=== PATIENT | male | born 1965 ===

== ENCOUNTER 2016-12-23 22:33 | Emergency (ER) | payer SELFPAY ==
[2016-12-23 22:35] VITALS: BMI 25.1
[2016-12-23] MEDS ORDERED: Sodium Chloride 0.9% 1,000 ML IV STA (22:36)
[2016-12-23 23:09] LABS: BASO # 0.1 K/uL (0.0-0.2); BASO % 1.2 % (0.0-2.0); EOS # 0.2 K/uL (0.0-0.7); HEMOGLOBIN 15.2 g/dL (12.0-18.0); LYMPH # 2.2 K/uL (1.0-4.3); MEAN CELL VOLUME 102.9 fL (80.0-94.0); MEAN CORPUSCULAR HGB CONC 33.1 g/dL (33.0-37.0); MEAN PLATELET VOLUME 7.3 fL (7.2-11.7); MONO # 0.7 K/uL (0.0-0.8); MONO % 12.2 % (0.0-10.0); NEUT # 2.4 K/uL (1.8-7.0); NEUT % 42.6 % (50.0-75.0); RBC 4.47 Mil/uL (4.40-5.90); RED CELL DISTRIBUTION WIDTH 13.5 % (11.5-14.5); WHITE BLOOD COUNT 5.5 K/uL (4.8-10.8)
[2016-12-23 23:15] LABS: URINE BILIRUBIN NEGATIVE (NEGATIVE); URINE BLOOD NEGATIVE (NEGATIVE); URINE CLARITY Clear (Clear); URINE COLOR Straw (YELLOW); URINE GLUCOSE (UA) NORMAL (Normal); URINE LEUKOCYTE ESTERASE NEG Leu/uL (Negative); URINE NITRATE NEGATIVE (NEGATIVE); URINE PROTEIN NEGATIVE (NEGATIVE); URINE UROBILINOGEN NORMAL mg/dL (0.2-1.0)
[2016-12-23 23:23] LABS: ALBUMIN 4.3 g/dL (3.5-5.0)
[2016-12-23 23:24] LABS: BARBITURATES, UR NEGATIVE (NEGATIVE); BENZODIAZEPINES, UR NEGATIVE (NEGATIVE)
[2016-12-23 23:26] LABS: AST/SGOT 95 U/L (17-59); GFR AFRICAN-AMERICAN > 60; GFR NON-AFRICAN AMERICAN > 60
[2016-12-23 23:27] LABS: ALB/GLOB RATIO 1.2 (1.0-2.1); ALT/SGPT 50 U/L (21-72); BLOOD UREA NITROGEN 7 mg/dL (9-20); CALCIUM 8.2 mg/dl (8.6-10.4)
[2016-12-23 23:28] LABS: SALICYLATE < 1.0 mg/dL 1
[2016-12-23 23:28] LABS: PHENCYCLIDINE, UR NEGATIVE (NEGATIVE)
[2016-12-23 23:30] LABS: ACETAMINOPHEN < 10.0 ug/mL (10.0-30.0)
[2016-12-23 23:30] LABS: OPIATES, UR POSITIVE (NEGATIVE)
--- NOTE | 2016-12-23 23:46 | C.PDOC ---
History Of Present Illness 51 year old male brought to ER via EMS for a narcotic overdose after his roommate found him apneic and cyanotic and pinpoint pupils in the pt's apartment bathroom and called 911. Patient was given 2 mg INH of narcan in the field with sudden improvement and BIBA. admits alcohol use, denies narcotics use. No physical complaints verbalized at this time. Time Seen by Provider: 12/23/16 22:35 Chief Complaint (Nursing): Substance Abuse History Per: EMS History/Exam Limitations: no limitations Onset/Duration Of Symptoms: Hrs Current Symptoms Are (Timing): Still Present Suicide/Self Injury Attempted (Context): None Modifying Factor(s): Narcotics Associated Symptoms: denies: Depression, Suicidal Thoughts, Suicidal Plan Involuntary Hold By: None Recent travel outside of the [place]: No Past Medical History Reviewed: Historical Data, Nursing Documentation, Vital Signs Vital Signs: Last Vital Signs Temp 97.6 F 12/23/16 22:37 Pulse 88 12/23/16 23:36 Resp 15 12/23/16 23:36 BP 144/99 H 12/23/16 23:36 Pulse Ox 100 12/24/16 00:00 - Medical History PMH: No Chronic Diseases Surgical History: No Surg Hx Family History: States: Unknown Family Hx - Social History Hx Alcohol Use: Yes Hx Substance Use: No (pt denies) Review Of Systems Constitutional: Negative for: Fever, Chills Gastrointestinal: Negative for: Nausea, Vomiting, Diarrhea Physical Exam - Physical Exam Appears: Non-toxic, Other (ETOH on breath) Skin: Normal Color, Warm, Dry Head: Atraumatic, Normacephalic Eye(s): bilateral: EOMI, Other (Pin [place] Pupils) Oral Mucosa: Moist Chest: Symmetrical, No Tenderness Cardiovascular: Rhythm Regular, No Murmur Respiratory: Normal Breath Sounds, No Rales, No Rhonchi, No Wheezing Gastrointestinal/Abdominal: Soft, No Tenderness Extremity: Normal ROM, No Tenderness, No Other (Track Marshall) Neurological/Psych: Oriented x3, Normal Speech, Normal Cognition ED Course And Treatment - Laboratory Results Result Diagrams: 12/23/16 23:05 12/23/16 23:05 Lab Interpretation: Abnormal (ETOH 366H, tox + opiates) O2 Sat by Pulse Oximetry: 100 (Room air) Pulse Ox Interpretation: Normal Progress Note: IV fluids administered. Reevaluation Time: 00:13 Reassessment Condition: Improved (sleeping, easily arousable) Medical Decision Making Medical Decision Making: opiate and alcohol abuse, saved by narcan INH by 911 response. Disposition Doctor Will See Patient In The: Office Counseled Patient/Family Regarding: Studies Performed - Disposition Disposition Time: 01:00 Condition: GOOD - Clinical Impression Clinical Impression: Alcohol abuse, Narcotic abuse - Scribe Statement The provider has reviewed the documentation as recorded by the Scribe Chato De León All medical record entries made by the Sintiaibe were at my direction and personally dictated by me. I have reviewed the chart and agree that the record accurately reflects my personal performance of the history, physical exam, medical decision making, and the department course for this patient. I have also personally directed, reviewed, and agree with the discharge instructions and disposition. Physician Patient Turnover Patient Signed Over To: Camilo Carrera Handoff Comments: dispo in AM when sober
[2016-12-24 06:00] VITALS: BP 122/75; PULSE 72; RESP 18; TEMP 97.9; O2SAT 97
== END 2016-12-24 06:00 | disposition home or self-care (01) ==
LOC: C.ER 22:33
DX: T40.2X1A Poisoning by other opioids, accidental (unintentional), initial encounter (principal); F11.10 Opioid abuse, uncomplicated; Y92.009 Unspecified place in unspecified non-institutional (private) residence as the place of occurrence of the external cause; F10.120 Alcohol abuse with intoxication, uncomplicated; Y90.8 Blood alcohol level of 240 mg/100 ml or more
CPT/HCPCS: 80053; 81001; 85025; 96360; 99285; G0480; J7040

== ENCOUNTER 2017-04-02 11:37 | Emergency (ER) | payer SELFPAY ==
[2017-04-02 11:37] VITALS: BMI 25.1
[2017-04-02] MEDS ORDERED: Naloxone 0.4 mg/ml Inj (Adult) ONE ×3 (11:47→14:40)
[2017-04-02] MEDS ORDERED: Naloxone 0.4 mg/ml Inj (Adult) IVP STA ×2 (11:52→12:08)
--- NOTE | 2017-04-02 11:56 | C.PDOC ---
History Of Present Illness 51 y/o male brought to ED by EMS for evaluation of possible substance abuse. Patient was found on the street sleeping and was given 0.8mg of Narcan while on route with response. He arrived in ED with pinpoint pupils and was lethargic. He responded to 0.4mg narcan given by MD and woke up and denied somatic complaints or drug use. Time Seen by Provider: 04/02/17 11:39 Chief Complaint (Nursing): Substance Abuse History Per: EMS History/Exam Limitations: clinical condition Onset/Duration Of Symptoms: Hrs Current Symptoms Are (Timing): Still Present Suicide/Self Injury Attempted (Context): None Past Medical History Reviewed: Historical Data, Nursing Documentation, Vital Signs Vital Signs: Last Vital Signs Temp 97.7 F 04/02/17 13:55 Pulse 109 H 04/02/17 15:11 Resp 22 04/02/17 15:11 BP 117/75 04/02/17 15:11 Pulse Ox 95 04/02/17 15:11 - Medical History PMH: No Chronic Diseases Surgical History: No Surg Hx Family History: States: No Known Family Hx - Social History Hx Alcohol Use: Yes Hx Substance Use: No (pt denies) Review Of Systems Review Of Systems: ROS cannot be obtained secondary to pt's inabilty to answer questions. (Patient is in AMS) Physical Exam - Physical Exam Appears: Non-toxic Skin: Warm, Dry, No Rash Head: Atraumatic, Normacephalic Eye(s): bilateral: Other (pint point pupils) Oral Mucosa: Moist Neck: Supple Chest: Symmetrical Cardiovascular: Rhythm Regular Respiratory: Normal Breath Sounds, No Accessory Muscle Use, No Rales, No Rhonchi , No Wheezing Gastrointestinal/Abdominal: Soft, No Tenderness, No Guarding, No Rebound Extremity: Other (moving extremities spontaneously) Pulses: Left Radial: Normal, Right Radial: Normal Neurological/Psych: Other (Arousible to sternal rub, Lethargic) ED Course And Treatment - Laboratory Results Result Diagrams: 04/02/17 12:19 04/02/17 12:19 Medical Decision Making Medical Decision Making: Patient on arrival Hypoxic with decreased respirations 0.4mg Narcan given to patient at ED 12:12PM FS:90. EKG shows sinus tachycardia at 105bpm with left atrial enlargement. Cxray negative CXR: IMPRESSION: No active disease. PROCEDURE: CT HEAD WITHOUT CONTRAST. HISTORY: Overdose COMPARISON: None available. TECHNIQUE: Axial computed tomography images were obtained through the head/brain without intravenous contrast. Radiation dose: Total exam DLP = 826.88 mGy-cm. This CT exam was performed using one or more of the following dose reduction techniques: Automated exposure control, adjustment of the mA and/or kV according to patient size, and/or use of iterative reconstruction technique. FINDINGS: Streak artifact obscures evaluation of the skullbase. HEMORRHAGE: No intracranial hemorrhage. BRAIN: No mass effect or edema. Scattered periventricular and subcortical white matter hypodensities, which are nonspecific, but often seen with chronic microvascular ischemic disease. Please note that MRI with diffusion imaging is more sensitive in the detection of acute ischemic event. VENTRICLES: No hydrocephalus. CALVARIUM: Unremarkable. PARANASAL SINUSES: Unremarkable as visualized. No significant inflammatory changes. MASTOID AIR CELLS: Unremarkable as visualized. No inflammatory changes. OTHER FINDINGS: 1.8 x 2.2 cm rounded lesion at the level of the left ear lobe measures approximately 3 HU consistent with cyst ; correlate with physical exam. IMPRESSION: Nonspecific white matter changes. 1.8 x 2.2 cm rounded lesion at the level of the left ear lobe measures approximately 3 HU consistent with cyst ; correlate with physical exam. 4:40PM Utox positive for heroin and alcohol elevated. Patient was last given narcan 2 hours ago. He is now AAox3 and ambulating around the ED and requesting to go home Disposition - Disposition Disposition: HOME/ ROUTINE Disposition Time: 16:41 Condition: GOOD Additional Instructions: Do not use drugs. Return to ED if condition worsens. Follow-up with PMD within 2 days Forms: [employer] (South Sudanese) - Clinical Impression Clinical Impression: Drug abuse, Opiate overdose, Alcohol intoxication - Scribe Statement The provider has reviewed the documentation as recorded by the Bartolo Thomas All medical record entries made by the Scribe were at my direction and personally dictated by me. I have reviewed the chart and agree that the record accurately reflects my personal performance of the history, physical exam, medical decision making, and the department course for this patient. I have also personally directed, reviewed, and agree with the discharge instructions and disposition.
[2017-04-02 12:25] LABS: BASO # 0.1 K/uL (0.0-0.2); BASO % 0.7 % (0.0-2.0); EOS # 0.1 K/uL (0.0-0.7); EOS % 1.2 % (0.0-4.0); LYMPH % 14.6 % (20.0-40.0); MEAN CORPUSCULAR HEMOGLOBIN 36.2 pg (27.0-31.0); MEAN CORPUSCULAR HGB CONC 33.8 g/dL (33.0-37.0); MEAN PLATELET VOLUME 7.5 fL (7.2-11.7); MONO # 0.2 K/uL (0.0-0.8); MONO % 2.8 % (0.0-10.0); RED CELL DISTRIBUTION WIDTH 13.7 % (11.5-14.5); WHITE BLOOD COUNT 7.1 K/uL (4.8-10.8)
--- NOTE | 2017-04-02 12:30 | RAD ---
PROCEDURE: CHEST RADIOGRAPH, 1 VIEW HISTORY: Overdosed COMPARISON: None available. FINDINGS: LUNGS: Clear. PLEURA: No pneumothorax or pleural fluid seen. CARDIOVASCULAR: Normal. OSSEOUS STRUCTURES: No significant abnormalities. VISUALIZED UPPER ABDOMEN: Normal. OTHER FINDINGS: None. IMPRESSION: No active disease.
[2017-04-02 12:40] LABS: POTASSIUM 4.2 mmol/L (3.6-5.2)
[2017-04-02 12:42] LABS: ALB/GLOB RATIO 1.5 (1.0-2.1); BILIRUBIN,TOTAL 0.6 mg/dL (0.2-1.3); TOTAL PROTEIN 7.5 g/dL (6.3-8.3)
[2017-04-02 12:43] LABS: CALCIUM 8.3 mg/dl (8.6-10.4)
--- NOTE | 2017-04-02 13:47 | CT ---
PROCEDURE: CT HEAD WITHOUT CONTRAST. HISTORY: Overdose COMPARISON: None available. TECHNIQUE: Axial computed tomography images were obtained through the head/brain without intravenous contrast. Radiation dose: Total exam DLP = 826.88 mGy-cm. This CT exam was performed using one or more of the following dose reduction techniques: Automated exposure control, adjustment of the mA and/or kV according to patient size, and/or use of iterative reconstruction technique. FINDINGS: Streak artifact obscures evaluation of the skullbase. HEMORRHAGE: No intracranial hemorrhage. BRAIN: No mass effect or edema. Scattered periventricular and subcortical white matter hypodensities, which are nonspecific, but often seen with chronic microvascular ischemic disease. Please note that MRI with diffusion imaging is more sensitive in the detection of acute ischemic event. VENTRICLES: No hydrocephalus. CALVARIUM: Unremarkable. PARANASAL SINUSES: Unremarkable as visualized. No significant inflammatory changes. MASTOID AIR CELLS: Unremarkable as visualized. No inflammatory changes. OTHER FINDINGS: 1.8 x 2.2 cm rounded lesion at the level of the left ear lobe measures approximately 3 HU consistent with cyst ; correlate with physical exam. IMPRESSION: Nonspecific white matter changes. 1.8 x 2.2 cm rounded lesion at the level of the left ear lobe measures approximately 3 HU consistent with cyst ; correlate with physical exam.
[2017-04-02] MEDS ORDERED: Sodium Chloride 0.9% 1,000 ML ONE (13:57)
[2017-04-02] MEDS ORDERED: Sodium Chloride 0.9% 2,000 ML IV ONE (13:58)
[2017-04-02] MEDS ORDERED: Naloxone 0.4 mg/ml Inj (Adult) IVP ONE (14:40)
[2017-04-02 16:43] VITALS: BP 123/73; PULSE 123; RESP 20; TEMP 98.8; O2SAT 100
== END 2017-04-02 16:54 | disposition home or self-care (01) ==
LOC: C.ER 11:37
DX: F10.129 Alcohol abuse with intoxication, unspecified (principal); T40.601A Poisoning by unspecified narcotics, accidental (unintentional), initial encounter; R53.83 Other fatigue; Y92.410 Unspecified street and highway as the place of occurrence of the external cause
CPT/HCPCS: 70450; 71010; 80053; 82948; 85025; 96361; 96374; 96376; 99285; G0480; J2310; J7040

== ENCOUNTER 2017-10-13 21:45 | Emergency (ER) | payer OTHER ==
[2017-10-13 21:45] VITALS: BMI 25.1
--- NOTE | 2017-10-13 22:24 | C.PDOC ---
History Of Present Illness 52 y/o undomiciled male with a history of alcohol abuse presents to the ED for EtOH intoxication. Patient was brought in by ambulance for drinking in public. He was admitted to [facility] on 10/09/17 for public intoxication. PMD: none provided Time Seen by Provider: 10/13/17 22:20 Chief Complaint (Nursing): Substance Abuse History Per: Patient History/Exam Limitations: intoxication Onset/Duration Of Symptoms: Hrs Current Symptoms Are (Timing): Still Present Modifying Factor(s): Alcohol Recent travel outside of the [place]: No Past Medical History - Medical History PMH: No Chronic Diseases Denies: Chronic Kidney Disease Surgical History: No Surg Hx Family History: States: Unknown Family Hx - Social History Hx Alcohol Use: Yes (daily) Hx Substance Use: Yes (cocaine and marijuana) Review Of Systems Except As Marked, All Systems Reviewed And Found Negative. Constitutional: Positive for: Other (EtOH intoxication) Physical Exam - Physical Exam Appears: Well, No Acute Distress, Other (disheveled and foul smelling) Skin: Normal Color, Warm, Dry Head: Atraumatic, Normacephalic Eye(s): bilateral: Normal Inspection, PERRL, EOMI Nose: Normal Throat: Normal Neck: Normal Cardiovascular: Rhythm Regular, No Murmur Respiratory: Normal Breath Sounds, No Decreased Breath Sounds Gastrointestinal/Abdominal: Normal Exam Back: Normal Inspection, No CVA Tenderness, No Vertebral Tenderness Extremity: Normal ROM, No Pedal Edema Neurological/Psych: Oriented x3, Other (alert) ED Course And Treatment Pulse Ox Interpretation: Normal Medical Decision Making Medical Decision Making: alcohol abuse, @ [facility] ED 10/09 for same awake, alert, oriented ? malingering. Disposition Doctor Will See Patient In The: Office Counseled Patient/Family Regarding: Studies Performed, Diagnosis - Disposition Referrals: Alcoholics Anonymous [Outside] [facility] [Outside] [facility] [Outside] [facility] [Outside] Disposition: HOME/ ROUTINE Disposition Time: 22:23 Condition: GOOD Additional Instructions: seek AA Seek nightly senior care placement Seek outpatient psych resources for your alcohol abuse and underlying psych issues. Instructions: Alcohol Abuse and Alcoholism (DC), Effects of Alcohol on Your Health Forms: [employer] (Belgian) - Clinical Impression Clinical Impression: Alcohol abuse
[2017-10-14] MEDS ORDERED: Naloxone 0.4 mg/ml Inj (Adult) IM STA (00:13)
[2017-10-14] MEDS ORDERED: Naloxone 0.4 mg/ml Inj (Adult) ONE (00:19)
[2017-10-14 03:00] VITALS: BP 102/65; PULSE 86; RESP 18; O2SAT 95
[2017-10-14 03:44] VITALS: TEMP 97.3
== END 2017-10-14 03:45 | disposition home or self-care (01) ==
LOC: C.ER 21:45
DX: F10.129 Alcohol abuse with intoxication, unspecified (principal); Y90.9 Presence of alcohol in blood, level not specified
CPT/HCPCS: 82948; 96372; 99284; J2310

== ENCOUNTER 2017-12-04 12:40 | Emergency (ER) | payer OTHER ==
[2017-12-04 12:40] VITALS: BMI 25.1
[2017-12-04 12:53] VITALS: RESP 20
[2017-12-04] MEDS ORDERED: Sodium Chloride 0.9% 1,000 ML IV ONE ×3 (13:38→17:56)
[2017-12-04] MEDS ORDERED: Naloxone 0.4 mg/ml Inj (Adult) IV ONE (13:39)
--- NOTE | 2017-12-04 13:40 | C.PDOC ---
History Of Present Illness <Lizzie Ayoub - Last Filed: 12/04/17 18:46> <Monica Kingston - Last Filed: 12/04/17 21:21> 52 yo male BIBA possible overdose. As per EMS, pt was found on bus stop sleeping /snoring, Narcan was administered. At present time, pt still appears somnolent, arousable to sternal rub. Disheveled. No further history obtainable at present time. Previous ED records review. Pt was seen last on due to alcohol/ opioid overdose. (Lizzie Ayoub) History Per: EMS <Lizzie Ayoub - Last Filed: 12/04/17 18:46> <Monica Kingston - Last Filed: 12/04/17 21:21> Time Seen by Provider: 12/04/17 13:36 Chief Complaint (Nursing): Substance Abuse Past Medical History Reviewed: Historical Data, Nursing Documentation, Vital Signs - Medical History PMH: Denies: Chronic Kidney Disease Family History: States: Unknown Family Hx - Social History Hx Tobacco Use: Yes Hx Alcohol Use: Yes (daily) Hx Substance Use: Yes (cocaine and marijuana) - Immunization History Hx Tetanus Toxoid Vaccination: No Hx Influenza Vaccination: No Hx Pneumococcal Vaccination: No <Lizzie Ayoub - Last Filed: 12/04/17 18:46> Vital Signs: Last Vital Signs Temp Pulse 95 H 12/04/17 21:15 Resp 20 12/04/17 21:15 BP 130/91 H 12/04/17 21:15 Pulse Ox 94 L 12/04/17 21:15 Review Of Systems Review Of Systems: ROS cannot be obtained secondary to pt's inabilty to answer questions. (intoxicated) <Lizzie Ayoub - Last Filed: 12/04/17 18:46> Physical Exam - Physical Exam Appears: Well, No Acute Distress (resp) Skin: Normal Color, Warm, Dry Head: Atraumatic, Normacephalic Eye(s): bilateral: PERRL (pin-point B/L, reactive) Nose: No Flaring, No Discharge, No Deformity Oral Mucosa: Moist, No Drooling, No Trismus Throat: No Drooling Neck: Trachea Midline, No Midline Cervical Tenderness, No Step Off Deformity, Supple Chest: Symmetrical Cardiovascular: Rhythm Regular, No Murmur, No JVD Respiratory: Accessory Muscle Use (abdominal), No Stridor, No Wheezing Gastrointestinal/Abdominal: Soft, No Tenderness, No Distention, No Guarding, No Rebound Back: No CVA Tenderness, No Vertebral Tenderness, No Paraspinal Tenderness Extremity: Normal ROM, No Deformity, No Swelling Neurological/Psych: Other (somnolent, non-compliant with exam) <Lizzie Ayoub - Last Filed: 12/04/17 18:46> ED Course And Treatment - Laboratory Results Result Diagrams: 12/04/17 13:54 12/04/17 13:54 Lab Interpretation: Abnormal ECG: Interpreted By Me, Viewed By Me ECG Rhythm: Sinus Rhythm ECG Interpretation: Normal Interpretation Of ECG: SR@93/min, NAD, no acute T wave or ST-T changes. O2 Sat by Pulse Oximetry: 95 Pulse Ox Interpretation: Normal Progress Note: After initial evaluation, pt was placed card/pulseOx monitor. Narcan 0.4 mg IM was given. On re-eval at 14:00, pt appears more awaken, itchy. Appears annoyed with questions, screaming and cursing me now. At 16:00, sleeping comfortably, easily arousable to verbal stimuli. neuorlogicaly intact. Alcohol level 404. At 18:00,pt sleeping comofrtably, not in any apaprent distress. Afebrile, hemodynamicaly stable. Neuorlogicaly intact. Blodo work review, pt appears dehydration, alcohol intoxication. UA, UDS- pending. Hydration with NS IVF ordered for 2L more. At 19:00 case discussed with sign out to . Pending: sobriety, re-eval, dispo. <Lizzie Ayoub - Last Filed: 12/04/17 18:46> - Laboratory Results Result Diagrams: 12/04/17 13:54 12/04/17 13:54 Pulse Ox Interpretation: Normal Reevaluation Time: 21:21 Reassessment Condition: Improved <Monica Kingston - Last Filed: 12/04/17 21:21> Critical Care Time - Critical Care Note Total Time (in mins): 30 Documented critical care: time excludes all time spent performing seperately billable procedures. <Lizzie Ayoub - Last Filed: 12/04/17 18:46> Disposition - Disposition Disposition Time: 19:00 <Lizzie Ayoub - Last Filed: 12/04/17 18:46> Counseled Patient/Family Regarding: Studies Performed, Diagnosis, Need For Followup <Monica Kingston - Last Filed: 12/04/17 21:21> - Disposition Referrals: [facility] [Outside] Disposition: HOME/ ROUTINE Condition: FAIR Instructions: Alcohol Abuse and Alcoholism (DC) Forms: [employer] (Fijian) - Clinical Impression Clinical Impression: Alcohol intoxication, Opiate overdose, Dehydration Physician Patient Turnover Patient Signed Over To: Monica Kingston <Lizzie Ayoub - Last Filed: 12/04/17 18:46>
[2017-12-04] MEDS ORDERED: Sodium Chloride 0.9% 1,000 ML ONE (13:49)
[2017-12-04] MEDS ORDERED: Naloxone 0.4 mg/ml Inj (Adult) ONE (13:49)
[2017-12-04 14:09] LABS: BASO # 0.1 K/uL (0.0-0.2); BASO % 1.2 % (0.0-2.0); EOS # 0.3 K/uL (0.0-0.7); EOS % 5.6 % (0.0-4.0); HEMOGLOBIN 13.5 g/dL (12.0-18.0); LYMPH % 19.1 % (20.0-40.0); MEAN CELL VOLUME 103.5 fL (80.0-94.0); MEAN CORPUSCULAR HEMOGLOBIN 35.6 pg (27.0-31.0); MEAN CORPUSCULAR HGB CONC 34.4 g/dL (33.0-37.0); MEAN PLATELET VOLUME 7.8 fL (7.2-11.7); MONO # 0.7 K/uL (0.0-0.8); MONO % 13.5 % (0.0-10.0); NEUT # 3.2 K/uL (1.8-7.0); NEUT % 60.6 % (50.0-75.0); NRBC % 0.1 % (0.0-2.0); RBC 3.81 Mil/uL (4.40-5.90); RED CELL DISTRIBUTION WIDTH 13.9 % (11.5-14.5); WHITE BLOOD COUNT 5.3 K/uL (4.8-10.8)
[2017-12-04 14:26] LABS: BLOOD UREA NITROGEN 11 mg/dL (9-20); CALCIUM 8.4 mg/dl (8.6-10.4); GFR AFRICAN-AMERICAN > 60; GFR NON-AFRICAN AMERICAN > 60
[2017-12-04 19:14] LABS: URINE BILIRUBIN NEGATIVE (NEGATIVE); URINE BLOOD NEGATIVE (NEGATIVE); URINE CLARITY Clear (Clear); URINE COLOR Yellow (YELLOW); URINE GLUCOSE (UA) NORMAL (Normal); URINE LEUKOCYTE ESTERASE NEG Leu/uL (Negative); URINE PROTEIN NEGATIVE (NEGATIVE); URINE UROBILINOGEN NORMAL mg/dL (0.2-1.0)
[2017-12-04 19:27] LABS: BARBITURATES, UR NEGATIVE (NEGATIVE); BENZODIAZEPINES, UR NEGATIVE (NEGATIVE); PHENCYCLIDINE, UR NEGATIVE (NEGATIVE)
[2017-12-04 19:30] LABS: OPIATES, UR POSITIVE (NEGATIVE)
[2017-12-04 21:16] VITALS: BP 130/91; PULSE 95; O2SAT 94
[2017-12-04 21:28] VITALS: TEMP 98.3
--- NOTE | 2017-12-05 22:29 | CARD ---
APPROVED REPORT EKG Measurement Heart [id number] <Conclusion> Normal sinus rhythm Normal ECG
== END 2017-12-04 21:27 | disposition home or self-care (01) ==
LOC: C.ER 12:40
DX: F10.129 Alcohol abuse with intoxication, unspecified (principal); T40.601A Poisoning by unspecified narcotics, accidental (unintentional), initial encounter; E86.0 Dehydration; Z72.0 Tobacco use
CPT/HCPCS: 80048; 80320; 80324; 80345; 80346; 80349; 80353; 80358; 80361; 81001; 82550; 83992; 85025; 93005; 96361; 96374; 99285; J2310; J7030

== ENCOUNTER 2017-12-19 09:46 | Emergency (ER) | payer OTHER ==
[2017-12-19 09:47] VITALS: BMI 25.1
[2017-12-19 09:55] VITALS: BP 112/74; PULSE 100; RESP 18; TEMP 99; O2SAT 100
--- NOTE | 2017-12-19 10:22 | C.PDOC ---
History Of Present Illness 52 y/o male presents to ED for evaluation of left ear lobe swelling gradually developed for the past 7 months. Patient states area "keeps growing" causing occasional pain. Patient denies fever, ear discharge, earache, headache, dizziness, vertigo, denies known trauma or injury, denies any other active complaints at this time. Ambulate to Ed for evaluation, not in any apparent distress. Time Seen by Provider: 12/19/17 10:14 Chief Complaint (Nursing): ENT Problem History Per: Patient History/Exam Limitations: None Onset/Duration Of Symptoms: Days Current Symptoms Are (Timing): Still Present Quality (Ear): Swelling. denies: Discharge, Foreign Body Past Medical History Reviewed: Historical Data, Nursing Documentation, Vital Signs Vital Signs: Last Vital Signs Temp 99 F 12/19/17 09:53 Pulse 100 H 12/19/17 09:53 Resp 18 12/19/17 09:53 BP 112/74 12/19/17 09:53 Pulse Ox 100 12/19/17 10:32 - Medical History PMH: No Chronic Diseases Surgical History: No Surg Hx Family History: States: No Known Family Hx - Social History Hx Tobacco Use: Yes Hx Alcohol Use: Yes (daily (from hx but denies)) Hx Substance Use: Yes (cocaine and marijuana) - Immunization History Hx Tetanus Toxoid Vaccination: No Hx Influenza Vaccination: No Hx Pneumococcal Vaccination: No Review Of Systems Constitutional: Negative for: Fever, Chills ENT: Positive for: Ear Pain. Negative for: Ear Discharge Skin: Negative for: Rash Neurological: Negative for: Headache Physical Exam - Physical Exam Appears: Well, Non-toxic, No Acute Distress Skin: Warm, Dry, No Rash Head: Normacephalic Eye(s): bilateral: PERRL Ear(s): Left: Other (left ear lobe non tender soft mass. no erythema. no fluctuance or draining ), Right: Normal Nose: No Flaring, No Discharge Oral Mucosa: Moist, No Drooling, No Trismus Tongue: Normal Appearing Lips: Normal Appearing Throat: No Erythema, No Exudate Neck: Trachea Midline, No Midline Cervical Tenderness, No Paracervical Tenderness, No Step Off Deformity, Supple Lymphatic: No Adenopathy (cervical) Extremity: Normal ROM Neurological/Psych: Oriented x3, Normal Speech ED Course And Treatment O2 Sat by Pulse Oximetry: 100 (RA) Pulse Ox Interpretation: Normal Progress Note: On re-evaluation, pt is afebrile, hemodynamicaly stable. Non- toxic. PulseOx 100% RA. ENT: exam c/w Left ear lobule soft mass likely lipoma vs keloid. No erythema, no flactualnce. TM- normal exam, ear canal normal, no mastoid tenderness B/L. neck: SUpple, (-) JVD, (-) cervical adenopathy. Lungs : CTA B/L, BS equal B/L. Neurologicaly intact. Pt advised on course of ds. ref. to f/u with ENT in 2-3 days for re-evaluation. Disposition Counseled Patient/Family Regarding: Diagnosis, Need For Followup, Rx Given - Disposition Referrals: Petros Cook MD [Staff Provider] - Disposition: HOME/ ROUTINE Disposition Time: 10:19 Condition: STABLE Additional Instructions: Follow up with ENT in 2-3 days for re-evaluation. return if any new changes. Instructions: Skin Lesion Removal (DC) Forms: [employer] (Croatian) - Clinical Impression Clinical Impression: Lipoma - PA / PILLOW FILLER / Resident Statement MD/DO has reviewed & agrees with the documentation as recorded. - Scribe Statement The provider has reviewed the documentation as recorded by the Sintiaibvilma Thomas All medical record entries made by the Bartolo were at my direction and personally dictated by me. I have reviewed the chart and agree that the record accurately reflects my personal performance of the history, physical exam, medical decision making, and the department course for this patient. I have also personally directed, reviewed, and agree with the discharge instructions and disposition.
== END 2017-12-19 10:40 | disposition home or self-care (01) ==
LOC: C.ER 09:46
DX: D17.39 Benign lipomatous neoplasm of skin and subcutaneous tissue of other sites (principal)

== ENCOUNTER 2018-03-09 17:11 | Emergency (ER) | payer OTHER ==
[2018-03-09 17:12] VITALS: BMI 25.1
[2018-03-09] MEDS ORDERED: Naloxone 0.4 mg/ml Inj (Adult) SC STA (17:50)
--- NOTE | 2018-03-09 17:53 | C.PDOC ---
History Of Present Illness 52 year old male patient brought to the ER by ambulance due to public intoxication. Patient is known to have a multi-substance abuse. Patient received narcan which brought improvement. Patient has no other physical complaints or SI/HI at this time. Time Seen by Provider: 03/09/18 17:38 Chief Complaint (Nursing): Substance Abuse History Per: Patient History/Exam Limitations: no limitations Onset/Duration Of Symptoms: Hrs Current Symptoms Are (Timing): Better Modifying Factor(s): Alcohol, Marijuana, Other (heroin) Past Medical History Reviewed: Historical Data, Nursing Documentation, Vital Signs Vital Signs: Last Vital Signs Temp 98.6 F 03/09/18 17:20 Pulse 102 H 03/09/18 17:20 Resp 15 03/09/18 17:20 BP 163/90 H 03/09/18 17:20 Pulse Ox 97 03/09/18 17:20 Family History: States: Unknown Family Hx - Social History Hx Tobacco Use: Yes Hx Alcohol Use: Yes (daily (from hx but denies)) Hx Substance Use: Yes (cocaine and marijuana) - Immunization History Hx Tetanus Toxoid Vaccination: No Hx Influenza Vaccination: No Hx Pneumococcal Vaccination: No Review Of Systems Except As Marked, All Systems Reviewed And Found Negative. Gastrointestinal: Negative for: Nausea, Vomiting, Abdominal Pain Neurological: Negative for: Weakness, Numbness Psych: Negative for: Suicidal ideation, Other (homicidal ideation) Physical Exam - Physical Exam Appears: Non-toxic, No Acute Distress Skin: Normal Color, Warm, Dry Head: Atraumatic, Normacephalic Eye(s): bilateral: Normal Inspection, EOMI Oral Mucosa: Moist Cardiovascular: Rhythm Regular Respiratory: Normal Breath Sounds Neurological/Psych: Oriented x3, Normal Speech ED Course And Treatment O2 Sat by Pulse Oximetry: 97 (RA) Pulse Ox Interpretation: Normal Medical Decision Making Medical Decision Making: recurrent alcohol, heroine, marijuana abuse extensively educated to seek AA/NA even if still substance abusing Disposition Doctor Will See Patient In The: Office Counseled Patient/Family Regarding: Studies Performed, Diagnosis - Disposition Referrals: Alcoholics Anonymous [Outside] [employer] [facility] [Outside] [facility] [Outside] [facility] [Outside] [facility] [Outside] Disposition: HOME/ ROUTINE Disposition Time: 17:53 Condition: GOOD Additional Instructions: avoid substance abuse Seek AA Seek [place] follow-up as outpatient. Instructions: Alcohol Abuse and Alcoholism (DC), Drug Abuse Treatment Forms: [employer] (Uruguayan) - Clinical Impression Clinical Impression: Alcohol abuse, Substance abuse - Scribe Statement The provider has reviewed the documentation as recorded by the Scribe Schuler Do Provider Attestation: All medical record entries made by the Scribe were at my direction and personally dictated by me. I have reviewed the chart and agree that the record accurately reflects my personal performance of the history, physical exam, medical decision making, and the department course for this patient. I have also personally directed, reviewed, and agree with the discharge instructions and disposition.
[2018-03-09] MEDS ORDERED: Naloxone 0.4 mg/ml Inj (Adult) ONE (18:07)
[2018-03-09 18:26] VITALS: BP 143/65; PULSE 96; RESP 20; TEMP 97.9
[2018-03-09 19:41] VITALS: O2SAT 97
== END 2018-03-09 18:25 | disposition home or self-care (01) ==
LOC: C.ER 17:11
DX: F10.10 Alcohol abuse, uncomplicated (principal); F19.10 Other psychoactive substance abuse, uncomplicated; Z72.0 Tobacco use
CPT/HCPCS: 96372; 99283; J2310

== ENCOUNTER 2018-03-28 10:38 | Emergency (ER) | payer OTHER ==
[2018-03-28 10:50] VITALS: BMI 25.0
[2018-03-28 10:54] VITALS: BP 118/79; PULSE 100; RESP 18; TEMP 98.7; O2SAT 98
[2018-03-28] MEDS ORDERED: Amoxicillin-Clav 875-125 mg Tab PO STA (12:32)
[2018-03-28] MEDS ORDERED: Amoxicillin-Clav 875-125 mg Tab PO ONE (12:47)
--- NOTE | 2018-03-28 23:10 | C.PDOC ---
History Of Present Illness 52 y/o intoxicated male with PMH of alcohol and cocaine abuse presents to the ED c/o nasal discomfort x 2 weeks. Pt states he was seen in the hospital for a "drug problem" a few weeks ago and that they left something in his nose on discharge. Pt now is unable to eat or drink without nasal and throat discomfort. Also concerned about redness and swelling to left side of nose. Admits to drinking a pint of fireball whiskey this morning. Denies fever, chills, SOB, chest pain, throat swelling, purulent nasal drainage, headache, vision changes, dizziness, N/V, abdominal pain, diarrhea. Chief Complaint (Nursing): ENT Problem History Per: Patient History/Exam Limitations: Intoxication Onset/Duration Of Symptoms: Days Past Medical History Reviewed: Historical Data, Nursing Documentation, Vital Signs Vital Signs: Last Vital Signs Temp 98.7 F 03/28/18 10:53 Pulse 100 H 03/28/18 10:53 Resp 18 03/28/18 10:53 BP 118/79 03/28/18 10:53 Pulse Ox 98 03/28/18 10:53 - Medical History PMH: Denies: Chronic Kidney Disease Family History: States: Unknown Family Hx - Social History Hx Tobacco Use: Yes Hx Alcohol Use: Yes (daily (from hx but denies)) Hx Substance Use: Yes (cocaine and marijuana) - Immunization History Hx Tetanus Toxoid Vaccination: No Hx Influenza Vaccination: No Hx Pneumococcal Vaccination: No Review Of Systems Except As Marked, All Systems Reviewed And Found Negative. Constitutional: Negative for: Fever, Chills Eyes: Negative for: Pain, Vision Change ENT: Positive for: Nose Pain. Negative for: Ear Pain, Ear Discharge, Nose Discharge, Nose Congestion, Mouth Pain, Mouth Swelling, Throat Pain, Throat Swelling Cardiovascular: Negative for: Chest Pain, Palpitations, Light Headedness Respiratory: Negative for: Cough, Shortness of Breath Gastrointestinal: Negative for: Nausea, Vomiting, Abdominal Pain, Diarrhea, Hematemesis Musculoskeletal: Negative for: Neck Pain Skin: Negative for: Rash Neurological: Negative for: Weakness, Numbness, Incoordination, Change in Speech, Seizures, Altered Mental Status, Headache, Dizziness Physical Exam - Physical Exam Appears: Non-toxic, No Acute Distress, Unkempt, Other (intoxicated) Skin: Normal Color, Warm, Dry Head: Atraumatic, Normacephalic, No Abrasion Eye(s): bilateral: Normal Inspection, PERRL, EOMI Ear(s): Bilateral: Normal Nose: Discharge (purulent drainage left nare), No Epistaxis, No Deformity, Tenderness (left side), No Septal Hematoma, Other (swelling, redness over left side of nose. FB in left nare. ) Oral Mucosa: Moist Tongue: Normal Appearing Lips: Normal Appearing Throat: Normal, No Erythema, No Exudate, No Drooling Neck: Normal, Normal ROM, No Midline Cervical Tenderness, No Paracervical Tenderness, Supple Lymphatic: Normal Exam, No Adenopathy Cardiovascular: Rhythm Regular Respiratory: Normal Breath Sounds Extremity: Normal ROM, No Tenderness, No Deformity, No Swelling Extremity: Bilateral: Atraumatic, Normal Color And Temperature, Normal ROM Pulses: Left Radial: Normal, Right Radial: Normal Neurological/Psych: Oriented x3, No Normal Speech (slurred), No Normal Cognition (intoxicated, mild), Normal Cranial Nerves, No Cerebellar Signs, Normal Motor, Normal Sensation Gait: Steady ED Course And Treatment O2 Sat by Pulse Oximetry: 98 Procedure: Blank - Time Time Performed: 11:20 - Time Out Time Out: Side verified, Site verified, Patient ID confirmed - Procedure Procedure:: Nasal FB Removal - Consent obtained: Consent obtained: Verbal - Performed by: Performed by:: Mid-level provider (Swati Barbour) - Indications Indications(s):: FB in left nare - Contraindications: Contraindications:: None - Patient Position Patient Position:: Supine - Location Location: Nose - Description Discription of Procedure: 03/28/18 (Retained nasopharyngeal airway from prior visit removed from left nare without complication. Pt tolerated well. Nasal septum intact; nasal mucosa erythematous with mild purulent drainage from area.) - Result Result: Successful - Post-Procedure Post-procedure:: Neurovascular status nml, Vital signs stable - Patient Tolerated Procedure Patient Tolerated Procedure:: Well Medical Decision Making Medical Decision Making: Initial Plan: --Foreign Body Removal Pt tolerated well, see procedure note. Comfortable with discharge home. Impression: Nasal foreign body Plan: --Augmentin (first dose here) x 10 days --stop alcohol consumption --seek AA --return to ER if symptoms worsen Disposition Counseled Patient/Family Regarding: Diagnosis, Need For Followup, Rx Given, Smoking Cessation - Disposition Referrals: Petros Cook MD [Staff Provider] - Disposition: HOME/ ROUTINE Disposition Time: 12:40 Condition: IMPROVED Additional Instructions: Take antibiotic twice daily for 10 days Stop alcohol consumption Followup with clinic or PMD alba 2 days Return to ER if symptoms worsen, fever develops, pus drainage from nose, difficulty breathing, severe swelling or pain Prescriptions: Amoxicillin/Clavulanate [Augmentin 875 MG-125 MG] 1 tab PO Q12H #19 tab Forms: [facility] (Congolese) - Clinical Impression Clinical Impression: Nasal foreign body
== END 2018-03-28 13:05 | disposition home or self-care (01) ==
LOC: C.ER 10:38
DX: T17.1XXA Foreign body in nostril, initial encounter (principal); X58.XXXA Exposure to other specified factors, initial encounter; Y92.9 Unspecified place or not applicable

== ENCOUNTER 2018-05-23 15:32 | Emergency (ER) | payer OTHER ==
[2018-05-23 15:32] VITALS: BMI 25.0
--- NOTE | 2018-05-23 16:11 | C.PDOC ---
History Of Present Illness 52 y/o male with history of alcohol abuse presents to ED via EMS for public intoxication. At ED patient easily arousable and admits to drinking ETOH today, beer. Smell of alcohol on breath and clothes. Patient was not given medication on route and denies drug use, SI/HI, truama/injury, fever, chills, chest pain, SOB, abdominal pain, nausea, vomiting, weakness, numbness, paresthesias, palpitations, or any other complaints at this time. ROS limited secondary to intoxication. Time Seen by Provider: 05/23/18 15:45 Chief Complaint (Nursing): Substance Abuse History Per: Patient History/Exam Limitations: no limitations Onset/Duration Of Symptoms: Hrs Current Symptoms Are (Timing): Still Present Suicide/Self Injury Attempted (Context): None Modifying Factor(s): Alcohol Past Medical History Reviewed: Historical Data, Nursing Documentation, Vital Signs Vital Signs: Last Vital Signs Temp 97.4 F L 05/23/18 15:41 Pulse 92 H 05/23/18 15:41 Resp 16 05/23/18 15:41 BP 142/86 05/23/18 15:41 Pulse Ox 98 05/23/18 15:41 - Medical History PMH: No Chronic Diseases Surgical History: No Surg Hx Family History: States: No Known Family Hx - Social History Hx Tobacco Use: Yes Hx Alcohol Use: Yes (daily ) Hx Substance Use: Yes (cocaine and marijuana; none today) - Immunization History Hx Tetanus Toxoid Vaccination: No Hx Influenza Vaccination: No Hx Pneumococcal Vaccination: No Review Of Systems Constitutional: Negative for: Fever, Chills Cardiovascular: Negative for: Chest Pain, Palpitations Respiratory: Negative for: Cough, Shortness of Breath Gastrointestinal: Negative for: Nausea, Vomiting, Abdominal Pain Genitourinary: Negative for: Dysuria, Frequency Musculoskeletal: Negative for: Neck Pain, Shoulder Pain, Back Pain Skin: Negative for: Rash Neurological: Negative for: Weakness, Numbness, Seizures, Headache, Dizziness Psych: Positive for: Other (alcohol use). Negative for: Psychosis, Suicidal ideation, Withdrawal Physical Exam - Physical Exam Appears: Well, Non-toxic, No Acute Distress, Unkempt, Other (Intoxicated) Skin: Normal Color, Warm, Dry, No Rash Head: Atraumatic, Normacephalic Eye(s): bilateral: Normal Inspection, PERRL, EOMI Ear(s): Bilateral: Normal Oral Mucosa: Moist Neck: Supple Cardiovascular: Rhythm Regular Respiratory: Normal Breath Sounds, No Rales, No Rhonchi, No Wheezing Gastrointestinal/Abdominal: Normal Exam, Soft, No Tenderness, No Guarding, No Rebound Back: Normal Inspection, No CVA Tenderness, No Vertebral Tenderness, No Paraspinal Tenderness Extremity: Normal ROM, Capillary Refill (<2 seconds) Extremity: Bilateral: Atraumatic, Normal Color And Temperature, Normal ROM Pulses: Left Radial: Normal, Right Radial: Normal Neurological/Psych: Oriented x3, Normal Cranial Nerves, Normal Motor, Normal Sensation Disoriented To: Place Gait: Unsteady Other Neurological Findings: No Facial Palsy, No Tongue Deviation Extremity: Right: No Drift, Left: No Drift, Upper: No Drift, Lower: No Drift ED Course And Treatment O2 Sat by Pulse Oximetry: 98 (RA) Pulse Ox Interpretation: Normal Medical Decision Making Medical Decision Making: Initial Plan: * Observe and monitor in ED * Reassess and Disposition On initial assessment, patient sleeping in stretcher, arousable to voice. Alert and oriented once awake, admitting to alcohol use, denies drug use. Pupils normal size, PERRLA, EOMI. No physical complaints. Physical exam normal, including motor, sensory, CN of neuro. Gait unsteady. Naming objects, can state name/, and obeying 1 and 2 step commands. 19:00 Case discussed with and patient care signed over to ED attending, Dr. Kingston. Vital signs stable at this time, patient sleeping soundly in stretcher, easily arousable to voice. Able to state his name and . Answering questions appropriately and obeying commands. Disposition - Disposition Disposition Time: 19:00 Condition: STABLE - Clinical Impression Clinical Impression: Alcohol intoxication - PA / AUTOMATIC LOG CUT OFF SAWYER / Resident Statement MD/DO has reviewed & agrees with the documentation as recorded. - Scribe Statement The provider has reviewed the documentation as recorded by the Bartolo Thomas All medical record entries made by the Bartolo were at my direction and personally dictated by me. I have reviewed the chart and agree that the record accurately reflects my personal performance of the history, physical exam, medical decision making, and the department course for this patient. I have also personally directed, reviewed, and agree with the discharge instructions and disposition.
[2018-05-24 05:21] VITALS: BP 138/71; PULSE 81; RESP 20; TEMP 97.9; O2SAT 99
== END 2018-05-24 05:21 | disposition home or self-care (01) ==
LOC: C.ER 15:32
DX: F10.129 Alcohol abuse with intoxication, unspecified (principal); Y90.9 Presence of alcohol in blood, level not specified